=== PATIENT | female | born 1945 | race Caucasian/White ===

== ENCOUNTER → 2018-03-22 | Day surgery (SDC) | payer MEDICARE ==
[2018-03-20 16:46] LABS: BASOPHILS # (AUTO) 0.1 (0.0-0.1); BASOPHILS % 0.9 % (0.0-1.0); EOSINOPHILS # (AUTO) 0.3 (0.0-0.4); EOSINOPHILS % 3.2 % (0.0-6.0); HEMATOCRIT 37.1 % (34.2-44.1); HEMOGLOBIN 12.9 g/dL (12.0-16.0); LYMPHOCYTES # (AUTO) 2.4 (1.0-3.2); LYMPHOCYTES % 29.9 % (18.0-39.1); MEAN CORPUSCULAR HEMOGLOBIN 30.4 pg (28-32); MEAN CORPUSCULAR HGB CONC 34.8 g/dL (31-35); MEAN CORPUSCULAR VOLUME 87.5 fL (81-99); MONOCYTES # (AUTO) 0.8 (0.2-0.8); MONOCYTES % 9.5 % (4.4-11.3); NEUTROPHILS # (AUTO) 4.5 (2.1-6.9); NEUTROPHILS % 56.2 % (38.7-80.0); PLATELET COUNT 207 x10e3/uL (140-360); RED BLOOD COUNT 4.24 x10e6/uL (3.6-5.1); RED CELL DISTRIBUTION WIDTH 11.9 % (11.7-14.4)
[2018-03-20 17:07] LABS: ANION GAP 13.4 mmol/L (8-16); BLOOD UREA NITROGEN 14 mg/dL (7-26); BUN/CREATININE RATIO 19 (6-25); CALCIUM 10.5 mg/dL (8.4-10.2); CARBON DIOXIDE 30 mmol/L (22-29); CHLORIDE 100 mmol/L (98-107); CREATININE, SERUM 0.74 mg/dL (0.57-1.11); EST GLOMERULAR FILTRATION RATE > 60 ML/MIN (60-); GLUCOSE 146 mg/dL (74-118); POTASSIUM 4.4 mmol/L (3.5-5.1); SODIUM 139 mmol/L (136-145)
--- NOTE | 2018-03-20 17:18 | Diagnostic Imaging Report ---
PROCEDURE: Frontal and lateral views of the chest. COMPARISON: 12/03/16 INDICATIONS: PREOP CXR FINDINGS: Lines/tubes: None. Lungs: The lungs are well inflated and clear. There is no evidence of pneumonia or pulmonary edema. Pleura: There is no pleural effusion or pneumothorax. Heart and mediastinum: The heart and the mediastinum are normal. Aorta is calcified and tortuous. Bones: No acute bony abnormality. IMPRESSION: 1. No acute cardiopulmonary disease. 2. No change from prior exam. Dictated by: Mac Fontanez M.D. on 03/20/2018 at 17:21 Electronically approved by: Mac Fontanez M.D. on 03/20/2018 at 17:21
[~2018-03-22] MED LIST: ACETAMINOPHEN 1000 MG/100 ML IV ONE; BONIVA PO; BUPIVACAINE HCL 0.5% INJ 30 ML VIAL INJ ONE; CEFAZOLIN SOD 1 GM VIAL ONE; CRESTOR10 MG PO; DEXAMETHASONE SOD PHOS INJ 4 MG/ML VIAL ONE; FENTANYL CITRATE/PF 100MCG/2 ML INJ ONE; FLUOXETINE HCL40 MG PO; LIDOCAINE HCL 2% LOCAL INJ 5 ML SDV VIAL INJ ONE; LISINOPRIL2.5 MG PO; METFORMIN HCL500 MG PO; MIDAZOLAM HCL 2 MG/2 ML VIAL ONE; MONTELUKAST SOD10 MG PO; NORCO 10-325 T1 EACH PO; ONDANSETRON HCL INJ 2 MG/ML VIAL ONE; PRAVASTATIN PO; PROPOFOL IV EMULSION 10 MG/ML 20 ML VIAL ONE; PROZAC20 MG; SEVOFLURANE INHAL SOLN 250 ML PEN BTL ONE; ZOLPIDEM TARTRAT5 MG PO; [UNRECOGNIZED DRUG - OTHER]
--- NOTE | 2018-03-22 08:58 | Operative Report ---
DATE OF PROCEDURE: March 22, 2018 PREOPERATIVE DIAGNOSIS: Hammertoe, 5th digit, left. POSTOPERATIVE DIAGNOSES: Hammertoe, 5th digit, left. OPERATIVE PROCEDURE: Arthroplasty, 5th digit, left foot. DETAILS OF PROCEDURE: The patient was placed on the OR table in the supine position. The left lower extremity was prepped and draped in the usual manner. A general anesthetic was administered, and hemostasis accomplished using a pneumatic cuff set at 350 mmHg at thigh level. Two semi-elliptical incisions were made on the dorsal aspect of the 5th left toe. The enclosed skin was removed in total. This exposed the proximal interphalangeal joint, which was opened from medial to lateral and the collateral ligaments were cut. This exposed the head of the proximal phalanx, which was then removed with the power saw and smoothed with a rongeur. The wound was flushed with sterile saline solution. At this time, a 0.045 K-wire was inserted from proximal to distal through the middle and distal phalanx and the exiting out the end of the toe. It was then retrograded back through the proximal phalanx into the 5th metatarsal to hold the toe in alignment during healing. The long extensor tendon was reapproximated with 3-0 Vicryl. The skin was then closed with 4-0 nylon. Five mL of 0.5 Marcaine and 1 mL of Decadron were injected. A sterile compression dressing was then applied. At this time, the pneumatic cuff was released and reflex hyperemia was observed to all digits. The patient tolerated the procedure and the anesthesia well, and left the OR to recovery in good condition with vital signs stable. Job#: [id number]
== END | disposition home or self-care (01) ==
LOC: OR 05:08
PROVIDERS: ATTEND Podiatrist Foot & Ankle Surgery
DX: M20.42 Other hammer toe(s) (acquired), left foot (principal); M06.9 Rheumatoid arthritis, unspecified; F32.9 Major depressive disorder, single episode, unspecified; E11.9 Type 2 diabetes mellitus without complications; I10 Essential (primary) hypertension; E78.5 Hyperlipidemia, unspecified; J44.9 Chronic obstructive pulmonary disease, unspecified; R01.1 Cardiac murmur, unspecified; Z88.1 Allergy status to other antibiotic agents; Z01.810 Encounter for preprocedural cardiovascular examination; Z01.812 Encounter for preprocedural laboratory examination; Z01.818 Encounter for other preprocedural examination; Z79.84 Long term (current) use of oral hypoglycemic drugs; Z96.653 Presence of artificial knee joint, bilateral
CPT/HCPCS: 28285; 36415 ×2; 71046; 80048; 82948; 85025; 93005; J0690; J1100; J2001; J2250; J2405

== ENCOUNTER → 2022-03-25 | Outpatient (CLI) | payer MEDICARE ==
[~2022-03-25] MED LIST changes: -ACETAMINOPHEN 1000 MG/100 ML IV ONE; -BUPIVACAINE HCL 0.5% INJ 30 ML VIAL INJ ONE; -CEFAZOLIN SOD 1 GM VIAL ONE; -DEXAMETHASONE SOD PHOS INJ 4 MG/ML VIAL ONE; -FENTANYL CITRATE/PF 100MCG/2 ML INJ ONE; -LIDOCAINE HCL 2% LOCAL INJ 5 ML SDV VIAL INJ ONE; -MIDAZOLAM HCL 2 MG/2 ML VIAL ONE; -ONDANSETRON HCL INJ 2 MG/ML VIAL ONE; -PROPOFOL IV EMULSION 10 MG/ML 20 ML VIAL ONE; -SEVOFLURANE INHAL SOLN 250 ML PEN BTL ONE
== END ==
LOC: DX 10:18
PROVIDERS: ATTEND Family Medicine
DX: Z13.820 Encounter for screening for osteoporosis (principal)
CPT/HCPCS: 77080